=== PATIENT | female | born 1960 | race Caucasian/White ===

== ENCOUNTER 2020-01-10 10:39 | Outpatient (CLI) | payer OTHER, SELFPAY ==
--- NOTE | ~2020-01-10 | MM_ITS ---
EXAMINATION: MM screening victor manuel BI w joby HISTORY: Screening mammogram TECHNIQUE: Craniocaudal and mediolateral oblique 3-D tomosynthesis images were obtained and synthetic 2-D images were generated. CAD analysis was submitted and interpreted. COMPARISON: 01/06/2019 and lateral digital screening mammogram 12/11/2017 diagnostic right digital mammogram and limited right breast ultrasound 12/18/2017 bilateral digital screening mammogram BREAST PARENCHYMAL COMPOSITION: There are scattered areas of fibroglandular density. FINDINGS: There is no evidence of suspicious mass, calcification, or architectural distortion to sugg est malignancy in either breast. There has been no suspicious interval change. IMPRESSION: 1. No mammographic evidence of malignancy. 2. Recommend routine screening mammography in one year. BI-RADS Category 1: Negative Reviewed, dictated and finalized at location A. TRUCTION SUPERVISOR
[2020-01-10 11:44] LABS: Add Urine Microscopic? YES; Appearance Urine Cloudy (Clear); Bacteria Urine Trace /hpf; Bilirubin Urine Negative (Negative); Blood Urine Negative (Negative); Color Urine Yellow (Yellow); Glucose Urine UA Negative (Negative); Ketones Urine Negative (Negative); Leukocyte Esterase Ur 3+ LEU/UL (NEGATIVE); Mucus Urine Rare /lpf; Nitrate Urine Negative (Negative); Protein Urine Negative (Negative); Specific Grav Ur 1.016 (1.001-1.035); Squamous Epithelial Cell Urine Many /hpf (Few); Urobilinogen Urine Negative mg/dL (<2.0); WBC Urine 0-3 /hpf (0-3)
== END 2020-01-10 10:40 | disposition home or self-care (01) ==
PROVIDERS: PCP Internal Medicine; Visit Provider Internal Medicine
DX: Z12.31 Encounter for screening mammogram for malignant neoplasm of breast (principal); R31.9 Hematuria, unspecified
CPT/HCPCS: 77063; 77067; 81001

== ENCOUNTER 2020-02-07 08:14 | Outpatient (CLI) | payer OTHER, SELFPAY ==
--- NOTE | ~2020-02-07 | CT_ITS ---
EXAMINATION: CT abdomen pelvis wo/w con DATE: 02/07/2020 09:01 INDICATION: Microhematuria TECHNIQUE: Computed tomography (CT) of the abdomen and pelvis was performed without and with 130 cc O mnipaque 350 intravenous contrast. The dose-length product was 2279.80 mGy-cm. Automated exposure con trol and iterative reconstruction technique were employed. COMPARISON: None. FINDINGS: Lung bases within normal limits. No significant pleural or pericardial effusion. There is a cyst of the left hepatic lobe. Heart size is normal. No renal/ureteral stones or hydronephrosis. The re is a small subcentimeter hypodensity of the right kidney, most likely benign cysts. Ureters are no rmal in course and caliber. Bladder is unremarkable. Fatty infiltration of the liver. The spleen, pancreas, adrenal glands are unremarkable. Mild atherosc lerosis. No aneurysm. Gallbladder is present. No bowel obstruction. Colonic diverticulosis without ev idence for diverticulitis. Normal appendix. No lymphadenopathy. IMPRESSION: 1. No findings to account for hematuria. Reviewed, dictated and finalized at location A.
[2020-02-07 08:41] LABS: Estimated Glomerular Filt Rate > 60
== END 2020-02-07 08:15 | disposition home or self-care (01) ==
PROVIDERS: PCP Internal Medicine; Visit Provider Urology
DX: R31.29 Other microscopic hematuria (principal)
CPT/HCPCS: 36415; 74178; Q9967

== ENCOUNTER 2020-12-24 10:08 | Outpatient (CLI) | payer OTHER, SELFPAY ==
[2020-12-24 11:06] LABS: Hematocrit 41.9 % (37.0-47.0); Hemoglobin 13.9 g/dL (12.0-15.0); Mean Corpuscular HGB Conc 33.2 g/dl (32-36); Mean Corpuscular Volume 90.5 fl (80-100); Mean Platelet Volume 8.9 fl (7.4-10.4); Platelet Count Result 236 k/mm3 (150-375); Red Blood Count 4.63 M/mm3 (4.2-5.4); Red Cell Distribution Width 12.7 % (11.5-14.5); White Blood Count 6.2 K/mm3 (4.5-10.0)
[2020-12-24 11:10] LABS: Add Urine Microscopic? YES; Appearance Urine Cloudy (Clear); Bacteria Urine Trace /hpf; Bilirubin Urine Negative (Negative); Blood Urine Negative (Negative); Color Urine Yellow (Yellow); Glucose Urine UA Negative (Negative); Ketones Urine Negative (Negative); Leukocyte Esterase Ur 3+ LEU/UL (NEGATIVE); Mucus Urine Rare /lpf; Nitrate Urine Negative (Negative); Protein Urine 1+ mg/dL (Negative); Specific Grav Ur 1.014 (1.001-1.035); Squamous Epithelial Cell Urine Many /hpf (Few); Urobilinogen Urine Negative mg/dL (<2.0)
[2020-12-24 11:19] LABS: Alanine Aminotransferase 41 U/L (4-35); Albumin Level 4.2 g/dL (3.5-5.1); Alkaline Phosphatase 96 U/L (38-126); Anion Gap 3 mmol/L (8-16); Aspartate Amino Transferase 39 U/L (14-36); Bilirubin,Total 0.7 mg/dL (0.2-1.3); Blood Urea Nitrogen 15 mg/dL (7-17); Calcium 9.1 mg/dL (8.4-10.2); Carbon Dioxide 35 mmol/L (22-30); Chloride 99 mmol/L (98-107); Cholesterol 256 mg/dL (0-200); Estimated Glomerular Filt Rate > 60; Glucose 103 mg/dL (65-105); HDL Direct 57 mg/dL; Sodium 137 mmol/L (137-145); Triglycerides 127 mg/dL (<150)
[2020-12-24 11:29] LABS: LDL Cholesterol Direct 156 mg/dL
[2020-12-24 11:51] LABS: Vitamin D 25 Hydroxy 37.2 ng/mL
== END 2020-12-24 10:09 | disposition home or self-care (01) ==
PROVIDERS: PCP Internal Medicine; Visit Provider Internal Medicine
DX: Z00.00 Encounter for general adult medical examination without abnormal findings (principal)
CPT/HCPCS: 36415; 80053; 80061; 81001; 82306; 85027

== ENCOUNTER 2021-01-31 14:00 | Outpatient (CLI) | payer OTHER, SELFPAY ==
--- NOTE | 2021-01-31 | ECG_ITS ---
Measurements Intervals [place] Rate: 85 P: 39 MS: 132 QRS: -21 QRSD: 102 T: 23 QT: 391 QTc: 466 Interpretive Statements SINUS RHYTHM POSSIBLE LEFT ATRIAL ENLARGEMENT BORDERLINE ST ABNORMALITY- LATERAL LEADS BASELINE WANDER- I, III BORDERLINE ECG Electronically Signed On 01-31-2021 14:34:49 QUAHOGGER by Negro Rodriguez D.O.
== END 2021-01-31 14:01 | disposition home or self-care (01) ==
PROVIDERS: PCP Internal Medicine; Visit Provider Internal Medicine
DX: Z01.818 Encounter for other preprocedural examination (principal); I10 Essential (primary) hypertension; R94.31 Abnormal electrocardiogram [ECG] [EKG]
CPT/HCPCS: 93005

== ENCOUNTER 2021-03-21 14:56 | Outpatient (CLI) | payer OTHER, SELFPAY ==
--- NOTE | ~2021-03-21 | MM_ITS ---
EXAMINATION: MM screening victor manuel BI w joby HISTORY: Screening mammogram, family history of breast cancer in her sister. TECHNIQUE: Craniocaudal and mediolateral oblique 3-D tomosynthesis images were obtained and synthetic 2-D images were generated. CAD analysis was submitted and interpreted. COMPARISON: 01/10/2020, 01/06/1920 12/11/2017, 12/08/2017 BREAST PARENCHYMAL COMPOSITION: There are scattered areas of fibroglandular density. FINDINGS: There is no evidence of suspicious mass, calcification, or architectural distortion to sugg est malignancy in either breast. There has been no suspicious interval change. IMPRESSION: 1. No mammographic evidence of malignancy. 2. Recommend routine screening mammography in one year. BI-RADS Category 1: Negative Reviewed, dictated and finalized at location A.
== END 2021-03-21 14:57 | disposition home or self-care (01) ==
LOC: ANHIMG 14:58
PROVIDERS: PCP Internal Medicine; Visit Provider Internal Medicine
DX: Z12.31 Encounter for screening mammogram for malignant neoplasm of breast (principal)
CPT/HCPCS: 77063; 77067

== ENCOUNTER 2022-05-15 14:36 | Outpatient (CLI) | payer OTHER, SELFPAY ==
--- NOTE | ~2022-05-15 | MM_ITS ---
EXAMINATION: MM screening victor manuel BI w joby HISTORY: Screening TECHNIQUE: Craniocaudal and mediolateral oblique 3-D tomosynthesis images were obtained and synthetic 2-D images were generated. CAD analysis was submitted and interpreted. COMPARISON: Comparison to multiple prior studies sequentially, with oldest reviewed study dated 07/2018. BREAST PARENCHYMAL COMPOSITION: Breast composed of scattered areas of fibroglandular density FINDINGS: There is no evidence of suspicious mass, calcification, or architectural distortion to sugg est malignancy in either breast. There has been no suspicious interval change. IMPRESSION: 1. No mammographic evidence of malignancy. 2. Recommend routine screening mammography in one year. BI-RADS Category 1: Negative Reviewed, dictated and finalized at location A.
== END 2022-05-15 14:37 | disposition home or self-care (01) ==
PROVIDERS: PCP Internal Medicine; Visit Provider Internal Medicine
DX: Z12.31 Encounter for screening mammogram for malignant neoplasm of breast (principal)
CPT/HCPCS: 77063; 77067

== ENCOUNTER 2022-07-09 10:40 | Outpatient (CLI) | payer OTHER, SELFPAY | END 2022-07-09 10:41 | disposition home or self-care (01) | PROVIDERS: PCP Internal Medicine | DX: Z02.1 Encounter for pre-employment examination (principal) | CPT/HCPCS: 80307 ==

== ENCOUNTER 2023-02-27 10:35 | Outpatient (CLI) | payer OTHER, SELFPAY ==
[2023-02-27 18:41] LABS: Basophils Percent Auto 0.5 % (0.2-1.2); Eosinophils Absolute Auto 0.2 K/mm3 (0-0.3); Eosinophils Percent Auto 3.5 % (0-4.4); Hematocrit 43.6 % (37.0-47.0); Hemoglobin 13.8 g/dL (12.0-15.0); Immature Granulocyte Absolute 0.02 K/mm3 (0.00-0.031); Immature Granulocyte Percent A 0.4 % (0-0.5); Lymphocytes Absolute Auto 2.18 K/mm3 (0.9-3.2); Lymphocytes Percent Auto 38.4 % (18.3-44.2); Mean Corpuscular HGB Conc 31.7 g/dl (32-36); Mean Corpuscular Hemoglobin 29.8 pg (26-34); Mean Corpuscular Volume 94.2 fl (80-100); Mean Platelet Volume 9.3 fl (7.4-10.4); Monocytes Absolute Auto 0.5 K/mm3 (0.1-0.6); Monocytes Percent Auto 9.3 % (2.6-8.5); Neutrophils Absolute Auto 2.7 K/mm3 (1.3-6.7); Neutrophils Percent Auto 47.9 % (45.5-73.1); Platelet Count Result 226 k/mm3 (150-375); Red Blood Count 4.63 M/mm3 (4.2-5.4); Red Cell Distribution Width 12.9 % (11.5-14.5); White Blood Count 5.7 K/mm3 (4.5-10.0)
[2023-02-27 19:07] LABS: Alanine Aminotransferase 35 U/L (6-35); Albumin Level 4.6 g/dL (3.5-5.1); Alkaline Phosphatase 106 U/L (38-126); Anion Gap 9 mmol/L (8-16); Aspartate Amino Transferase 34 U/L (14-36); Bilirubin,Total 0.8 mg/dL (0.2-1.3); Blood Urea Nitrogen 13 mg/dL (7-17); Calcium 9.2 mg/dL (8.4-10.2); Carbon Dioxide 30 mmol/L (22-30); Chloride 102 mmol/L (98-107); Cholesterol 293 mg/dL (0-200); Estimated Glomerular Filt Rate > 60; Glucose 88 mg/dL (65-110); HDL Direct 61 mg/dL; Potassium 4.6 mmol/L (3.4-5.0); Sodium 141 mmol/L (137-145); Triglycerides 110 mg/dL (<150)
[2023-02-27 19:33] LABS: HIV 1/2 Ab P24 Ag Result Negative (Negative)
[2023-02-27 19:41] LABS: Hepatitis C Virus Antibody Negative (Negative)
[2023-02-27 19:54] LABS: LDL Cholesterol Direct 168 mg/dL
== END 2023-02-27 10:36 | disposition home or self-care (01) ==
LOC: ANHGOSHLAB 10:39
PROVIDERS: PCP Internal Medicine
DX: Z00.00 Encounter for general adult medical examination without abnormal findings (principal); I10 Essential (primary) hypertension; R73.01 Impaired fasting glucose; Z11.59 Encounter for screening for other viral diseases; Z11.4 Encounter for screening for human immunodeficiency virus [HIV]
CPT/HCPCS: 36415; 80053; 80061; 85025; 86703; 86803; G0432

== ENCOUNTER 2023-07-23 11:36 | Outpatient (CLI) | payer OTHER, SELFPAY ==
[2023-07-23 17:16] LABS: Alanine Aminotransferase 67 U/L (6-35); Albumin Level 4.4 g/dL (3.5-5.1); Alkaline Phosphatase 104 U/L (38-126); Anion Gap 5 mmol/L (8-16); Aspartate Amino Transferase 69 U/L (14-36); Bilirubin,Total 0.6 mg/dL (0.2-1.3); Blood Urea Nitrogen 10 mg/dL (7-17); Calcium 8.7 mg/dL (8.4-10.2); Carbon Dioxide 32 mmol/L (22-30); Chloride 99 mmol/L (98-107); Cholesterol 232 mg/dL (0-200); Estimated Glomerular Filt Rate > 60; Glucose 87 mg/dL (65-110); HDL Direct 87 mg/dL; Potassium 3.6 mmol/L (3.4-5.0); Sodium 136 mmol/L (137-145); Triglycerides 113 mg/dL (<150)
[2023-07-23 17:27] LABS: LDL Cholesterol Direct 109 mg/dL
== END 2023-07-23 11:37 | disposition home or self-care (01) ==
LOC: ANHGOSHLAB 11:38
PROVIDERS: PCP Internal Medicine; Visit Provider Family Medicine
DX: Z51.81 Encounter for therapeutic drug level monitoring (principal); Z79.899 Other long term (current) drug therapy
CPT/HCPCS: 36415; 80053; 80061

== ENCOUNTER 2023-09-30 09:00 | Outpatient (CLI) | payer OTHER, SELFPAY ==
--- NOTE | ~2023-09-30 | MM_ITS ---
EXAMINATION: MM screening victor manuel BI w joby HISTORY: Screening mammogram, family history of breast cancer in her sister. TECHNIQUE: Craniocaudal and mediolateral oblique 3-D tomosynthesis images were obtained and synthetic 2-D images were generated. CAD analysis was submitted and interpreted. COMPARISON: 05/15/2022, 03/21/2021, 01/10/2020 BREAST PARENCHYMAL COMPOSITION: There are scattered areas of fibroglandular density. FINDINGS: No suspicious mass, calcification, or architectural distortion are identified in either pa ast to suggest malignancy. There has been no suspicious interval change. IMPRESSION: 1. No mammographic evidence of malignancy. 2. Recommend routine screening mammography in one year. BI-RADS Category 1: Negative Reviewed, dictated and finalized at location A.
== END 2023-09-30 09:01 | disposition home or self-care (01) ==
LOC: ANHIMG 09:03
DX: Z12.31 Encounter for screening mammogram for malignant neoplasm of breast (principal)
CPT/HCPCS: 77063; 77067

== ENCOUNTER 2024-12-29 14:21 | Outpatient (CLI) | payer OTHER, SELFPAY ==
--- NOTE | ~2024-12-29 | MM_ITS ---
EXAMINATION: MM screening victor manuel BI w joby HISTORY: Screening TECHNIQUE: Craniocaudal and mediolateral oblique 3-D tomosynthesis images were obtained and synthetic 2-D images were generated. CAD analysis was submitted and interpreted. COMPARISON: Comparison to multiple prior studies sequentially, with oldest reviewed study dated 05/2019. BREAST PARENCHYMAL COMPOSITION: Not dense: There are scattered areas of fibroglandular density. FINDINGS: There is no evidence of suspicious mass, calcification, or architectural distortion to sugg est malignancy in either breast. There has been no suspicious interval change. IMPRESSION: 1. No mammographic evidence of malignancy. 2. Recommend routine screening mammography in one year. BI-RADS Category 1: Negative Reviewed, dictated and finalized at location A. RBERATORY FURNACE OPERATOR
--- OUTSIDE RECORDS SUMMARY | 2024-12-29 14:59 | XMS_ITS | Referral Summary ---
Author Organization [facility] Address [address] [place] [address] Care Team Providers Care Lavatory Attendant Name Role Phone Ema Pedersen MD Primary Care Provide r Allergies Active Allergy Reactions Criticality Noted Date Comments Fentanyl Nausea only,Vomiting Reaction: nausea, vomitting, , Reaction: Nausea, Vomiting, Medications cholecalciferol (VITAMIN D-3) 2000 unit tablet Take 1 tablet (2,000 Units total) by mouth daily Active traZODone (DESYREL) 50 mg tabletIndicatio ns:Primary insomnia Take 1 tablet (50 mg total) by mouth nightly as needed for sleep 60 tablet 1 07/31/2024 Active losartan-hydroc hlorothiazide (HYZAAR) 100-25 mg per tablet Take 1 Tablet by mouth daily. 90 tablet 1 09/28/2024 Active atorvastatin (LIPITOR) 10 mg tablet Take 1 Tablet (10 mg) by mouth daily. 90 tablet 1 09/28/2024 Active amLODIPine (NORVASC) 5 mg tablet Take 1 Tablet (5 mg) by mouth daily. 90 tablet 1 09/28/2024 Active sertraline (ZOLOFT) 25 mg tablet Take 1 Tablet (25 mg) by mouth daily. 90 tablet 1 09/28/2024 Active Active Problems Problem Noted Date Diagnosed Date Class 1 obesity due to exces s calories with serious comorbidity and body mass index (BMI) of 32.0 to 32.9 in adult 05/26/2024 Assessment & Plan (05/26/2024 11:06 AM CDT): She was counseled on the importance of maintaining a healthy weight and the risks of obesity. Weight loss recommended. Primary insomnia 05/26/2024 Assessment & Plan (05/26/2024 11:05 AM CDT): New concern Not at goal Will start trazodone 50mg daily F/u in 2 months for monitoring Hyperlipidemia, unspecified 03/04/2023 Assessment & Plan (05/25/2024 7:08 AM CDT): LDL goal of <100 Strong family hx of hypercholesterolemia Cont. atorvastatin 10mg daily Assessment & Plan (03/04/2023 8:25 AM CDT): LDL of 168 Strong family hx of hypercholesterolemia Will start low dose atorvastatin 10mg daily Will recheck cmp and lipids in 3 months for monitoring Encounter for wellness examination 03/03/2023 Assessment & Plan (05/26/2024 11:05 AM CDT): Labs ordered Colonoscopy referral placed Pap smear s/p hysterectomy Mammo up to date F/u in 1 year for annual Assessment & Plan (03/04/2023 8:28 AM CDT): Labs reviewed and discussed Colonoscopy up to date Pap smear s/p hysterectomy Mammo up to date F/u in 1 year for annual Vitamin D deficiency 01/07/2018 Assessment & Plan (03/04/2023 8:14 AM CDT): Continue with supplementation Generalized anxiety disorder 01/07/2018 Assessment & Plan (05/25/2024 7:08 AM CDT): Stable / clinically quiescent. Will continue to monitor. -SI/-HI, report to ER should this occur Continue with sertraline 25mg daily Assessment & Plan (03/03/2023 6:23 AM CDT): Continue with sertraline 25mg daily Assessment & Plan (08/07/2022 9:12 AM CDT): Continue with sertraline 25mg daily Hypertension 10/26/2012 Overview (03/05/2017): Hypertension Assessment & Plan (05/26/2024 10:43 AM CDT): Bp in the office today BP Readings from Last 1 Encounters: 05/26/24 122/68 Continue current regimen of amlodipine 5mg daily hyzaar 100 25mg daily Recommend DASH diet, heart-healthy lifestyle, exercise. Discussed the risks of hypertension. F/u in 6 months Assessment & Plan (09/23/2023 10:58 AM CDT): Bp in the office today BP Readings from Last 1 Encounters: 09/23/23 120/68 Continue current regimen of amlodipine 5mg daily hyzaar 100 25mg daily Recommend DASH diet, heart-healthy lifestyle, exercise. Discussed the risks of hypertension. F/u in 6 months Assessment & Plan (03/04/2023 8:14 AM CDT): Bp in the office today BP Readings from Last 1 Encounters: 03/04/23 110/72 Continue current regimen of amlodipine 5mg daily hyzaar 100 25mg daily Recommend DASH diet, heart-healthy lifestyle, exercise. Discussed the risks of hypertension. F/u in 6 months Assessment & Plan (08/07/2022 9:11 AM CDT): Bp in the office today BP Readings from Last 1 Encounters: 08/07/22 134/80 Continue current regimen of amlodipine 5mg daily hyzaar 100 25mg daily Recommend DASH diet, heart-healthy lifestyle, exercise. Discussed the risks of hypertension. F/u at annual Fibrocystic breast changes 10/26/2012 Overview (03/05/2017): Fibrocystic breast Resolved Problems Problem Noted Date Diagnosed Date Resolved Date Abscess of back, except buttock 03/29/2017 01/07/2018 Overview (04/24/2017): Cutaneous abscess of back [any part, except buttock] Immunizations Name Administration Dates Next Due Influenza, Quadrivalent, Spl it, Preservative Free, Intramuscular 09/29/2023,08/30/2016 Influenza, Split 08/30/2011 Influenza, Trivalent, IM (MDV) 08/24/2013,2007 Influenza, Unspecified 09/15/2022,2021(Deferred: Patient Refused),09/15/2021,09/12/2020, 019,09/23/2018,09/23/2017 Td, adsorbed 11/30/2008 ZOSTER LIVE 01/02/2017 ZOSTER Recombinant 01/22/2022,12/13/2020 Social History Tobacco Use Types Packs/Day Years Used Date Smoking Tobacco: Never Smokeless Tobacco: Never Alcohol Use Standard Drinks/Week Comments Yes 0 (1 standard drink = 0.6 oz pur e alcohol) AUDIT-C Answer Date Recorded Q1: How often do you have a drink containing alc ohol? Monthly or less 09/23/2023 Q2: How many drinks containi ng alcohol do you have on a typical day when you are drinking? 1 or 2 09/23/2023 Q3: How often do you have si x or more drinks on one occasion? 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 Gender Identity Not on file Sexual Orientation Not on file Last Filed Vital Signs Vital Sign Reading Time Taken Comments Blood Pressure 122/68 05/26/2024 10:24 AM CDT Pulse 74 05/26/2024 10:24 AM CDT Temperature 36.8 ??C (98.2 ??F) 05/26/2024 10:24 AM C DT Respiratory Rate 18 05/26/2024 10:24 AM CDT Oxygen Saturation 96% 05/26/2024 10:24 AM CDT Inhaled Oxygen Concentration - - Weight 92.5 kg (204 lb) 05/26/2024 10:24 AM CDT Height 167.6 cm (5' 6 ) 05/26/2024 10:24 AM CDT Body Mass Index 32.93 05/26/2024 10:24 AM CDT Plan of Treatment Not on file Procedures Procedure Name Priority Date/Time Associated Diagnosis Comments SCREENING MAMMOGRAM BILATERAL W SB Schedule Routine, Read Routine (OP Routine) 09/30/2023 HEPATITIS C ANTIBODY Routine 02/27/2023 10:51 AM CDT Primary hypertension Healthcare maintenance Need for hepatitis C screening test COLONOSCOPY Routine 05/08/2011 from Last 3 Months or Most Recently Relevant to Health Maintenance Results * Screening Mammogram Bilateral W Sb (09/30/2023) Anatomical Region Laterality Modality Breast Bilateral Mammography Generic External Data Provider IMG MAMMO PROCEDU RES Final Result * Hepatitis C antibody (02/27/2023 10:51 AM CDT) SCRIBED HCV ab negative EXTERNAL LAB Blood 02/27/2023 10:5 1 AM CDT Ema Pedersen MD LAB MICROBIOLOGY - NERAL ORDERABLES Final Result EXTERNAL LAB * COLONOSCOPY (05/08/2011) Colonoscopy Abnormal Comment:Polyps, diverticulos is. Follow path report Historical Provider HEALTH MAINTENANCE Final Result from Last 3 Months or Most Recently Relevant to Health Maintenance Insurance [facility] Care Teams Lavatory Attendant Relationship Specialty Start Date End Date Ema Pedersen MD [address] [facility] [address] [address] PCP - General Family Medicine 05/16/22
--- OUTSIDE RECORDS SUMMARY | 2024-12-29 14:59 | XMS_ITS | Clinical Summary ---
Author Organization [facility] Address [address] Rivera: Epic Prelude ADT [place] [address] Care Team Providers Care Billing Auditor Name Role Phone Unavailable Primary Care Provider Unavailabl e Allergies Active Allergy Reactions Criticality Noted Date Comments Fentanyl Unknown 04/26/2022 Medications predniSONE (DELTASONE) 20 mg tablet Take 1 Tablet (20 mg) by mouth 2 times daily for 7 days 14 Tablet 1 04/14/2023 10:06 AM CDT 07/05/2022 Active traZODone (DESYREL) 50 mg tablet Take 1 tablet (50 mg total) by mouth nightly as needed for sleep 60 Tablet 1 07/31/2024 Active losartan-hydroC HLOROthiazide (HYZAAR) 100-25 mg tablet Take 1 Tablet by mouth daily. 90 Tablet 1 12/03/2024 10:08 AM FURNACE INSTALLER HELPER 09/28/2024 Active atorvastatin (LIPITOR) 10 mg tablet Take 1 Tablet (10 mg) by mouth daily. 90 Tablet 1 12/03/2024 10:08 AM FURNACE INSTALLER HELPER 09/28/2024 Active amLODIPine (NORVASC) 5 mg tablet Take 1 Tablet (5 mg) by mouth daily. 90 Tablet 1 12/03/2024 10:08 AM FURNACE INSTALLER HELPER 09/28/2024 Active sertraline (ZOLOFT) 25 mg tablet Take 1 Tablet (25 mg) by mouth daily. 90 Tablet 1 12/03/2024 10:08 AM FURNACE INSTALLER HELPER 09/28/2024 Active Social History Tobacco Use Types Packs/Day Years Used Date Smoking Tobacco: Never Assessed Comments Unknown Sex and Gender Information Value Date Recorded Sex Assigned at Not on file Legal Sex Female 3:27 PM CDT Gender Identity Not on file Sexual Orientation Not on file Plan of Treatment Health Maintenance Due Date Last Done Comments DTAP/TDAP/TD VACCINES (1 - Tdap) 1978 BREAST CANCER SCREENING 1999 COLORECTAL SCREENING 2004 Colorectal Cancer Screening 2004 FIT-DNA Q 3 years 2004 FIT/FOBT Q 1 year 2004 Flex Sig/CT Colonography Q 5 years 2004 PNEUMOCOCCAL VACCINE 65+ YEARS (1 of 1 - PCV) 07/11/20 09 ZOSTER VACCINE (1 of 2) 2009 INFLUENZA VACCINE (#1) 2024 OSTEOPOROSIS SCREENING 2024 RSV VACCINE (60+ or ) (1 - 1-dose 75+ series) 2034 Insurance RX [facility] [employer]
--- OUTSIDE RECORDS SUMMARY | 2024-12-29 14:59 | XMS_ITS | Clinical Summary ---
Author Organization [facility] Address [address] [place] [address] Care Team Providers Care Teacher Theater Arts Name Role Phone Ema Pedersen MD Primary [...] 11/30/2008 ZOSTER LIVE 01/02/2017 ZOSTER Recombinant 01/22/2022,12/13/2020 Surgical History Surgery Date Site/Laterality Comments OTHER SURGICAL HISTORY 1983 : 4 hr labor OTHER SURGICAL HISTORY 1985 : 1 hr labor OTHER SURGICAL HISTORY 1999 Lt breast BX OTHER SURGICAL HISTORY 1994 prolapsed uterus: Hysterectomy Medical History Medical History Date Comments Hx Other Medical benign breast b x Hx Other Medical 1983 ; Outc ome: 40 week 8 lb(s) 12 oz Male Hx Other Medical 1985 ; Outc ome: 40 week 8 lb(s) 1 oz Male Hypertension 2010 Hypertension Uterine prolapse 1983 prolapsed uteru s History of abnormal cervical Papanicolaou smear Abnormal PAP Hyperlipidemia Hyperlipidemia Family History Medical History Relation Name Comments Hyperlipidemia Father Hyperlipidemi a; Hypertension Father Hypertension; Multiple myeloma Father Hyperlipidemia Mother Hyperlipidemi a; Hypertension Mother Hypertension; Other Mother Alive and well; Breast cancer Sister 2 Cancer, breast ; Relation Name Status Comments Father Mother Alive Sister 1 Sister 2 Sister 3 Alive Social History Tobacco Use Types Packs/Day Years [...] on file 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 Gender Identity Not on file Sexual Orientation Not on file Obstetrics History Last Filed Vital Signs Vital Sign Reading [...] 05/26/2024 10:24 AM CDT Plan of Treatment Health Maintenance Due Date Last Done Comments Osteoporosis Screening-Bone Density Scan 1959 Hepatitis B Screening 1977 DTaP/Tdap/Td Vaccine (1 - Tdap) 12/01/2008 9 Colon Cancer Screening-Colonoscopy 05/08/2016 05/08/2011 Pneumococcal vaccine 65+ (1 of 1 - PCV) 2024 Covid-19 Vaccine (4 - 2023-2 5 season) 2024 11/28/2021, 01/29/2021, 01/01/2021 Influenza Vaccine (#1) 2024 , 09/15/2022, 09/15/2021, Additional history exists Fall Risk Assessment 09/23/2024 09/23/2023, 03/04/2023, 08/07/2022, Additional history exists Breast Cancer Screening-Mammogram 09/30/2024 09/30/2023, 05/15/2022, 03/21/2021, Additional history exists Depression Screening 05/26/2025 05/26/2024, 09/23/2023, 03/04/2023, Additional history exists Well Visit 65+ 05/26/2025 05/26/2024, 04/0 03/2023, 02/03/2022, Additional history exists Colon Cancer Screening-CT Colonography Discontinued 05/08/2011 Colon Cancer Screening-DNA Stool Discontinued 05/08/20 11 Colon Cancer Screening-FIT Discontinued 05/08/2011 Colon Cancer Screening-Sigmoidoscopy Discontinued 05/08/2011 Zoster Vaccine Completed 01/22/2022, 11/30, 01/02/2017 Hepatitis C Screening Completed 02/27/2023, 017 Procedures Procedure Name Priority Date/Time Associated Diagnosis [...] Abnormal Comment:Polyps, diverticulos is. Follow path report us Historical Provider HEALTH MAINTENANCE Final Result from Last 3 Months or Most Recently Relevant to Health Maintenance Insurance [facility] Care Teams Teacher Theater Arts Relationship Specialty Start Date End Date Ema Pedersen MD [address] [place] [address] [address] PCP - General Family Medicine 05/16/22
== END 2024-12-29 14:22 | disposition home or self-care (01) ==
DX: Z12.31 Encounter for screening mammogram for malignant neoplasm of breast (principal)
CPT/HCPCS: 77063; 77067

== ENCOUNTER 2025-06-06 10:28 | Outpatient (CLI) | payer OTHER, SELFPAY ==
--- OUTSIDE RECORDS SUMMARY | 2025-06-06 10:39 | XMS_ITS | Clinical Summary ---
Author Organization [facility] Address [address] Rivera: Epic Prelude ADT [place] [address] Care Team Providers Care Metal Engraver Name Role Phone Unavailable Primary Care Provider [...] Tablet by mouth daily. 90 Tablet 1 04/07/2025 12:59 PM CDT 03/27/2025 Active atorvastatin (LIPITOR) 10 mg tablet Take 1 Tablet (10 mg) by mouth daily. 90 Tablet 1 04/07/2025 12:59 PM CDT 03/27/2025 Active amLODIPine (NORVASC) 5 mg tablet Take 1 Tablet (5 mg) by mouth daily. 90 Tablet 1 04/07/2025 12:59 PM CDT 03/27/2025 Active sertraline (ZOLOFT) 25 mg tablet Take 1 Tablet (25 mg) by mouth daily. 90 Tablet 1 04/07/2025 12:59 PM CDT 03/27/2025 Active Social History Tobacco Use Types Packs/Day [...] Colonography Q 5 years 2004 PNEUMOCOCCAL VACCINE 50+ YEARS (1 of 1 - PCV) 07/11/20 09 ZOSTER VACCINE (1 of 2) 2009 OSTEOPOROSIS SCREENING 2024 INFLUENZA VACCINE (#1) 2025 RSV VACCINE (60+ or ) (1 - 1-dose 75+ series) 2034 Insurance RX [facility] [employer] [address] [employer] Organization
--- OUTSIDE RECORDS SUMMARY | 2025-06-06 10:40 | XMS_ITS | Clinical Summary ---
Author Organization [facility] Address [address] [place] [address] Care Team Providers Care Oil Operator Name Role Phone Ema Pedersen MD Primary [...] Tablet by mouth daily. 90 tablet 1 03/27/2025 Active atorvastatin (LIPITOR) 10 mg tablet Take 1 Tablet (10 mg) by mouth daily. 90 tablet 1 03/27/2025 Active amLODIPine (NORVASC) 5 mg tablet Take 1 Tablet (5 mg) by mouth daily. 90 tablet 1 03/27/2025 Active sertraline (ZOLOFT) 25 mg tablet Take 1 Tablet (25 mg) by mouth daily. 90 tablet 1 03/27/2025 Active Active Problems Problem Noted Date Diagnosed [...] abscess of back [any part, except buttock] Encounters Date Type Department Care Team Description 05/30/[address] 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 Gender Identity Not on file Sexual Orientation Not on file Obstetrics History Last Filed Vital Signs Vital Sign Reading Time Taken Comments Blood Pressure 122/68 05/26/2024 10:24 AM CDT Pulse 74 05/26/2024 10:24 AM CDT Temperature 36.8 C (98.2 F) 05/26/2024 10:24 AM CDT Respiratory Rate 18 05/26/2024 10:24 AM CDT Oxygen Saturation 96% 05/26/2024 10:24 AM CDT Inhaled Oxygen Concentration - - Weight 92.5 kg (204 lb) 05/26/2024 10:24 AM CDT Height 167.6 cm (5' 6) 05/26/2024 10:24 AM CDT Body Mass Index 32.93 05/26/2024 10:24 AM CDT Plan of Treatment Health Maintenance Due Date Last Done Comments Osteoporosis Screening-Bone Density Scan 1959 Hepatitis B Screening 1977 DTaP/Tdap/Td Vaccine (1 - Tdap) 12/01/2008 9 Pneumococcal vaccine 65+ (1 of 1 - PCV) 2009 Colon Cancer Screening-Colonoscopy 05/08/2016 05/08/2011 Covid-19 Vaccine (4 - 2023-2 5 season) 2024 11/28/2021, 01/29/2021, 01/01/2021 Fall Risk Assessment 09/23/2024 09/23/2023, 03/04/2023, 08/07/2022, Additional history exists Breast Cancer Screening-Mammogram 09/30/2024 09/30/2023, 05/15/2022, 03/21/2021, Additional history exists Depression Screening 05/26/2025 05/26/2024, 09/23/2023, 03/04/2023, Additional history exists Well Visit 65+ 05/26/2025 05/26/2024, 04/0 03/2023, 02/03/2022, Additional history exists Influenza Vaccine (#1) 2025 3, 09/15/2022, 09/15/2021, Additional history exists Colon Cancer Screening-CT Colonography [...] maintenance Need for hepatitis C screening test HM COLONOSCOPY Routine 05/08/2011 from Last 3 Months [...] CDT Ema Pedersen MD LAB MICROBIOLOGY - [place] NERAL ORDERABLES Final Result EXTERNAL LAB * COLONOSCOPY (05/08/2011) Colonoscopy Abnormal Comment:Polyps, diverticulos is. Follow path report us Historical Provider HEALTH MAINTENANCE Final Result from Last 3 Months or Most Recently Relevant to Health Maintenance Insurance [facility] Address: [address] [address] [facility]/PPO Address: [place] [address] Care Teams Oil Operator Relationship Specialty Start Date End Date Ema Pedersen MD [address] [place] [address] [place] [address] PCP - General Family Medicine 05/16/22
--- OUTSIDE RECORDS SUMMARY | 2025-06-06 10:40 | XMS_ITS | Referral Summary ---
Author Organization [facility] Address [address] [place] [address] Care Team Providers Care Charge Account Clerk Name Role Phone Ema Pedersen MD Primary Care Provide r Encounters Date Type Department Care Team Description 05/30/2025 Telephone [facility] Primary Care at [address] [place] [address] Ema Pedersen MD Additional Services Or Orders from Last 3 Months Allergies Active Allergy Reactions Criticality Noted Date [...] of back [any part, except buttock] Immunizations Immunization Administration Dates Next Due Influenza, [...] on file Legal Sex Female 11:51 PM [employer] Gender Identity Not on file Sexual Orientation [...] CDT Ema Pedersen MD LAB MICROBIOLOGY - GE NERAL ORDERABLES Final Result EXTERNAL LAB * COLONOSCOPY (05/08/2011) Colonoscopy Abnormal Comment:Polyps, diverticulos is. Follow path report us Historical Provider HEALTH MAINTENANCE Final Result from Last 3 Months or Most Recently Relevant to Health Maintenance Insurance [facility] Care Teams Charge Account Clerk Relationship Specialty Start Date End Date Ema Pedersen MD [address] [place] [address] PCP - General Family Medicine 05/16/22
[2025-06-06 12:24] LABS: Hematocrit 42.6 % (37.0-47.0); Hemoglobin 13.9 g/dL (12.0-15.0); Immature Granulocyte Percent A 0.5 % (0-0.5); Lymphocytes Absolute Auto 1.87 K/mm3 (0.9-3.2); Mean Corpuscular HGB Conc 32.6 g/dl (32-36); Mean Corpuscular Hemoglobin 31.2 pg (26-34); Mean Corpuscular Volume 95.5 fl (80-100); Nucleated Red Blood Cells Absolute Auto 0.000 K/mm3 (0.0-0.012); Nucleated Red Blood Cells Perc 0.0 % (0.0-0.2); Platelet Count Result 212 k/mm3 (150-375); Red Blood Count 4.46 M/mm3 (4.2-5.4); White Blood Count 5.7 K/mm3 (4.5-10.0)
[2025-06-06 12:27] LABS: Hemoglobin A1C 5.5 % (<5.7)
[2025-06-06 12:29] LABS: Alanine Aminotransferase 126 U/L (6-35); Albumin Level 4.5 g/dL (3.5-5.1); Alkaline Phosphatase 95 U/L (38-126); Anion Gap 7 mmol/L (4-12); Aspartate Amino Transferase 129 U/L (14-36); Bilirubin,Total 0.8 mg/dL (0.2-1.3); Blood Urea Nitrogen 9 mg/dL (7-17); Calcium 9.5 mg/dL (8.4-10.2); Carbon Dioxide 32 mmol/L (22-30); Chloride 103 mmol/L (98-107); Cholesterol 219 mg/dL (0-200); Estimated Glomerular Filt Rate > 60; Glucose 108 mg/dL (65-110); HDL Direct 89 mg/dL; Potassium 4.8 mmol/L (3.4-5.0); Sodium 142 mmol/L (137-145); Total Protein 7.9 g/dL (6.3-8.2); Triglycerides 69 mg/dL (<150)
== END 2025-06-06 10:29 | disposition home or self-care (01) ==
LOC: ANHGOSHLAB 10:31
DX: Z00.00 Encounter for general adult medical examination without abnormal findings (principal)
CPT/HCPCS: 36415; 80053; 80061; 83036; 85025